=== PATIENT | female | born 1945 | race Caucasian/White ===

== ENCOUNTER → 2016-06-25 | Outpatient (CLI) | payer OTHER ==
[~2016-06-25] MED LIST: ASPCH81X PO; BRIM0.1S OPB; CETI10TA84 PO; COEN100C11 PO; LEVO50TA PO; LOSA100T30 PO; NSP/500 PO; OMEG10007 PO; SIMV20TA2 PO; TRAV0.00 OPB
--- NOTE | 2016-06-25 12:39 | DIAGNOSTIC IMAGING REPORT ---
KUB HISTORY: N20.0 [id number] COMPARISON: KUB 07/21/2015. FINDINGS: The bowel gas pattern is unremarkable. There are no dilated loops of small bowel to suggest an obstruction. The right renal shadow is mostly obscured by overlying bowel gas. No definite right renal calculi. There are are least 3 calcifications within the left kidney with the largest measuring 4 mm. These are not significant changed. No ureteral or bladder calculi identified. No pneumoperitoneum or pneumatosis. IMPRESSION: Stable left-sided nephrolithiasis. Electronically signed by: Luiz Powell M.D. 06/25/2016 12:37 PM Dictated Date/Time: 06/25/2016 12:36 PM
== END | disposition home or self-care (01) ==
LOC: C.RAD 12:06
PROVIDERS: ATTEND Internal Medicine
DX: N20.0 Calculus of kidney (principal)

== ENCOUNTER 2017-03-09 14:18 | Emergency (ER) | payer OTHER ==
[~2017-03-09] VITALS: Ht 160 cm; Wt 71.2 kg
[~2017-03-09 14:18] MED LIST changes: -LEVO50TA PO; -LOSA100T30 PO; -NSP/500 PO; -SIMV20TA2 PO; -TRAV0.00 OPB
[2017-03-09 14:20] VITALS: BP 159/82; PULSE 74; TEMP 36.9; O2SAT 97; Ht 160 cm; Wt 71.2 kg
[2017-03-09] MEDS ORDERED: LOSA100T30 PO (14:48)
[2017-03-09] MEDS ORDERED: TRAV0.00 OPB (14:48)
[2017-03-09] MEDS ORDERED: LEVO50TA PO (14:48)
[2017-03-09] MEDS ORDERED: SIMV20TA2 PO (14:48)
[2017-03-09] MEDS ORDERED: NSP/500 PO (14:48)
[2017-03-09] MEDS ORDERED: CEPH500C PO (14:50)
[2017-03-09] MEDS ORDERED: SULF800T23 PO (14:50)
[2017-03-09] MEDS ORDERED: DIPHTHERIA/TETANUS/PERTUSSIS 0.5 ML SYR/VIAL IM. ONE (15:00)
--- NOTE | 2017-03-09 15:03 | EMERGENCY ROOM VISIT NOTE ---
ED Visit Note First contact with patient: 14:31 I have personally seen and evaluated the patient with the physician family and divorce legal assistant. I agree with the diagnostic/management decisions and have personally been involved in these decisions and agree with the diagnosis.
--- NOTE | 2017-03-09 15:29 | EMERGENCY ROOM VISIT NOTE ---
History First contact with patient: 14:31 Chief Complaint: INFECTION Stated Complaint: INFECTED BIG TOES Nursing Triage Summary: pt reports infected big toes. went to rf engineer 2 weeks ago removed edges . now is red and slightly swollen History of Present Illness The patient is a 71 year old female who presents to the Emergency Room with complaints of bilateral great toe infections. The patient reports that she had tissue cut off of both toes 2 weeks ago by a rf engineer. She had a return visit this past Saturday, and reported that the rf engineer that they looked a little pink, but did not suspect that they were infected. Since Saturday, the patient reports that she has had clear drainage from the wounds. She now reports increasing redness over the past 24 hours, and rates her discomfort a 4 out of 10 with weightbearing. The patient believes that her tetanus immunization is out of date, over 10 years ago. Review of Systems 10 system review was performed and was negative except for pertinent positives and negatives as indicated in history of present illness Past Medical/Surgical History Medical Problems: (1) Anemia Nos (2) Calculus Of Kidney (3) Calculus Of Ureter (4) Endometriosis Nos (5) Eosinophilic Esophagitis (6) Hypertension Nos (7) Skin cancer Surgical Problems: (1) History of hysterectomy Family History FH: breast cancer FH: heart disease FH: hypertension FH: osteoporosis Social History Smoking Status: Never Smoker Alcohol Use: occasionally Marital Status: Occupation Status: retired Current/Historical Medications Scheduled Brimonidine Tartrate (Alphagan P Oph), 1 DROP OPB BID Cephalexin Monohydrate (Keflex), 500 MG PO QID Cetirizine (Zyrtec), 10 MG PO QAM Levothyroxine Sodium (Synthroid), 50 MCG PO QAM Losartan Potassium & Hydrochlo (Losartan Potassium/Hydroc), 1 TAB PO QAM Niacin (Niaspan Ext Rel), 500 MG PO HS Simvastatin (Zocor), 20 MG PO HS Sulfa/Trimethoprim (Bactrim Ds 800MG/160MG), 1 TAB PO BID Travoprost (Travatan Z), 1 DROPS OPB HS Physical Exam Vital Signs Date Time Temp Pulse Resp B/P (MAP) Pulse Ox O2 Delivery O2 Flow Rate FiO2 03/09/17 14:20 36.9 74 18 159/82 97 Room Air Physical Exam CONSTITUTIONAL: Healthy and well nourished. Alert and oriented X 3 with positive affect. HEENT: Normocephalic, atraumatic. Pupils equal, round and reactive. NECK: Full active range of motion without discomfort. MUSCULOSKELETAL: Examination of bilateral great toes shows evidence for lateral nailfold excisions. There is good granulation tissue at the sites. However, there is notable erythema along these nailfold's and proximal nail fold. There is no significant extension of the erythema onto the base of the toes or dorsal foot. Some mild serous drainage is noted from both proximal nail folds. Capillary refill is less than 2 seconds. INTEGUMENTARY: No rash or other significant dermatologic conditions noted. NEUROLOGIC: Bilateral great toes are sensory intact. Medical Decision & Procedures Medications Administered Medications (Trade) Dose Ordered Sig/Francesca Route Start Time Stop Time Status Last Admin Dose Admin Diphtheria/ Pertussis/Tetanus Vacc (Adacel Inj) 0.5 ml ONCE ONCE IM. 03/09/17 15:00 03/09/17 15:01 DC 03/09/17 15:04 0.5 ML ED Course Patient history and physical exam were performed. Nurse's notes were reviewed. Vital signs were reviewed, showing a mildly elevated blood pressure of 159/ 82. The patient will be provided prescriptions for Keflex and Bactrim DS antibiotics. She was instructed to watch for any progressively worsening infection, and return to the emergency department as needed. She was encouraged to keep the wounds clean and covered with an antibiotic ointment and dressings. She may follow-up with her rf engineer as needed with any further concerns of wound healing. The patient was happy with plan of care, voiced understanding of all discharge instructions, and denied any significant pain at the time of discharge. The patient was administered Adacel IM prior to discharge. The patient was also seen and examined by Dr. Esquivel, ED attending physician, who agrees with workup and plan of care. Medical Decision Medication Reconcilliation Current Medication List: was personally reviewed by me Blood Pressure Screening Patient's blood pressure: Normal blood pressure Impression Primary Impression: Bilateral great toe cellulitis Departure Information Dispostion Home / Self-Care Prescriptions Sulfa/Trimethoprim (Bactrim Ds 800MG/160MG) Tab 1 TAB PO BID for 7 Days, #14 TAB Prov: Jovanny Abbasi PA 03/09/17 Cephalexin Monohydrate (Keflex) 500 Mg Cap 500 MG PO QID for 7 Days, #28 CAP Prov: Jovanny Abbasi PA 03/09/17 Forms HOME CARE DOCUMENTATION FORM, IMPORTANT VISIT INFORMATION Patient Instructions My [facility] Additional Instructions Keep wounds clean and covered with an antibiotic ointment and dressing. Complete all Keflex and Bactrim DS antibiotics as prescribed. Ibuprofen or Tylenol as needed for pain. Return to the emergency department for any significantly worsening redness, swelling, pain, red streaks or fever. Call your family doctor's office and advise them that you were administered Adacel in the emergency department.
== END 2017-03-09 15:08 | disposition home or self-care (01) ==
LOC: C.EDB 14:20 → C.EDD 15:08
DX: L03.031 Cellulitis of right toe (principal); L03.032 Cellulitis of left toe; I10 Essential (primary) hypertension; Z80.3 Family history of malignant neoplasm of breast; Z82.49 Family history of ischemic heart disease and other diseases of the circulatory system; Z82.62 Family history of osteoporosis; Z23 Encounter for immunization

== ENCOUNTER → 2017-07-02 | Outpatient (CLI) | payer OTHER ==
[~2017-07-02] MED LIST changes: -ASPCH81X PO; -COEN100C11 PO; +LEVO50TA PO; +LOSA100T30 PO; +NIAC500T83 PO; -OMEG10007 PO; +SIMV20TA2 PO; +TRAV0.00 OPB
--- NOTE | 2017-07-02 11:19 | DIAGNOSTIC IMAGING REPORT ---
KUB CLINICAL HISTORY: 71 years-old Female presenting with HYPERCHOLESTEROLEMIA, NEPHROLITHIASIS. TECHNIQUE: Single supine view of the abdomen was obtained. COMPARISON: 06/25/2016. FINDINGS: Moderate stool burden primarily in the right and transverse colon. This degrades evaluation for renal calculi. Redemonstration of the left renal calculus. Right renal shadow poorly visualized. No calcifications along the courses of the ureters. No bladder calculi. Degenerative changes of the lower lumbar spine. IMPRESSION: 1. Stable appearance of the left renal calculus. Evaluation degraded by moderate stool burden. Electronically signed by: Dipak Damian M.D. 07/02/2017 11:17 AM Dictated Date/Time: 07/02/2017 11:16 AM
== END | disposition home or self-care (01) ==
LOC: C.RAD 10:52
PROVIDERS: ATTEND Urology
DX: E78.00 Pure hypercholesterolemia, unspecified (principal); N20.0 Calculus of kidney